=== PATIENT | male | born 1980 | race Hispanic/Latino ===

== ENCOUNTER 2025-02-18 06:17 | Day surgery (SDC) | payer OTHER ==
[2025-02-16 10:18] VITALS: BP 147/75; PULSE 76; RESP 17; TEMP 98
[2025-02-16 10:19] LABS: IMMATURE GRANULOCYTE ABSOLUTE 0.03 K/uL (0-1); NUCLEATED RED BLOOD CELLS 0.0 % (0.0-0.19); PLATELET COUNT (AUTO) 347 K/uL (130-400); RED BLOOD CELL COUNT(AUTO) 5.18 MIL/uL (4.50-6.20); RED CELL DISTRIBUTION WIDTH 13.6 % (11.0-15.5); WHITE BLOOD COUNT (AUTO) 7.8 K/uL (4.8-10.8)
[2025-02-16 10:25] LABS: CREATININE 1.0 mg/dL (0.5-1.3); GLOMERULAR FILTR. RATE CALC 95.0 mL/min (>90); GLUCOSE,RANDOM 94.0 mg/dL (70-105); SODIUM SERUM 140.0 mmol/L (136-145); UREA NITROGEN, BLOOD 8.0 mg/dL (7-18)
[~2025-02-18] VITALS: Ht 167.6 cm; Wt 152.8 kg
[2025-02-18] VITALS (13 sets, daily range): BP systolic 109–138; BP diastolic 71–85; PULSE 65–81; RESP 16–20; TEMP 97.1–97.9
[~2025-02-18 06:17] MED LIST: ALBU18HF7 IH; ATOR40TA71 PO; BUPR300T53 PO; BUSP15TA3 PO; LEVO25TA54 PO; MONT-39 PO; NAPR-1174 PO
[2025-02-18] MEDS: LACTATED RINGERS 1000ML 1,000 ML IV ONE (07:07)
[2025-02-18] MEDS ORDERED: LIDOCAINE PF 100MG/5ML (2%) SYRINGE 5ML ONE (07:35)
[2025-02-18] MEDS ORDERED: SUCCINYLCHOLINE CHLORIDE 20 MG/ML 10 ML VIAL ONE ×2 (07:36→08:27)
[2025-02-18] MEDS ORDERED: GLYCOPYRROLATE 0.2 MG/ML 5 ML VIAL ONE (07:36)
[2025-02-18] MEDS ORDERED: NEOSTIGMINE METHYLSULFATE 1MG/ML IV ONE (07:36)
[2025-02-18] MEDS ORDERED: MIDAZOLAM HCL 1 MG/ML 2ML VIAL ONE (07:37)
[2025-02-18] MEDS ORDERED: ACET-2079 PO (07:47)
--- NOTE | 2025-02-18 07:52 | OP ---
Operative Note: DATE OF PROCEDURE: 02/18/25 SURGEON: JERICHO YANCEY MD REMOTE SENSING SURVEYOR: [Josiah Sepulveda CFA] ANESTHESIA: [General anesthesia] ANESTHESIOLOGIST/WEB ANALYST: [Amrit Greer] PREOPERATIVE DIAGNOSIS: [Right knee medial meniscal tear] POSTOPERATIVE DIAGNOSIS: [Complex tear posterior horn medial meniscus, plus chondral lesion medial femoral condyle] PROCEDURE: [Right knee arthroscopy, partial medial meniscectomy, chondroplasty medial femoral condyle] ESTIMATED BLOOD LOSS: [Less than 20 mL] INDICATIONS: [44-year-old male with a history of recurrent pain to the right knee. The patient has been admitted for arthroscopic procedure after MRI revealed the presence of a tear of the medial meniscus. Procedure understood, risks, benefits and possible complications and agreed to sign the consent form.] DESCRIPTION OF PROCEDURE: [After adequate general anesthesia was achieved the patient's right lower extremity was prepped and draped in the usual manner previous placement of the tourniquet in the proximal thigh. The extremity was elevated and exsanguinated with an Esmarch band and the tourniquet was inflated to 250 mmHg the Esmarch band been then removed. The leg was brought to the side of the bed with the knee in 90 degrees of flexion and 2 small incisions were made medial and lateral to the patella tendon at the joint line level through the skin followed by blunt dissection with a trocar penetrating into the joint. Through the lateral portal the arthroscopic cannula was inserted and then after the cannula was removed the scope was inserted in the sheath bringing the knee on the table in extension placing the scope in the suprapatellar area which was noted to be normal with a normal quadriceps tendon and patellofemoral joint. The knee was then brought into flexion on the side of the bed and the scope follow into the medial compartment where after valgus stress was done we were able to visualize the medial compartment and a complex tear of the meniscus, which was very unstable. With the use of the meniscal shaver as well as an trimmers we proceeded to remove the torn tissue leaving hook stable tissue removing all the debris. We also noted the presence of a loose articular surface cartilage in the more lateral aspect of the weight-bearing surface of the medial femoral condyle, the lesion lifting from one age and we proceeded to remove all the loose tissue and noticing that the chondral lesion was partial thickness with still adequate cartilage left over behind. We then proceeded to bring the scope to the intercondylar notch noticing that the ACL and PCL were normal and then with a [id number] position of the knee we were able to visualize the lateral compartment which show normal characteristics of the meniscus and the articular surface. The arthroscope was then removed from the joint as well as the fluid and we then proceeded to close the incisions with #3- 0 nylon simple stitches. A soft dressing was applied to cover the small incisions followed by application of an Gold bandage. The drapes were then removed after the tourniquet was deflated and the patient was transferred to the stretcher and then taken to recovery room for follow-up by anesthesia. There were no complications during the procedure.] JERICHO YANCEY MD Feb 18, 2025 07:52
--- NOTE | 2025-02-18 10:07 | NUR ---
Full and complete discharge instructions given to Patient and Family both verbally and in writing. Explained Surgical procedure precautions and follow up. Right knee incision sites clean dry and intact. No evidence of bleeding, bruising or hematoma. Gold wrap secure from OR. Patient remains neurovascularly intact. Crutch training provided. All questions answered. PIV removed with catheter tip intact. Family at bedside appearing supportive. W/C to POV with Family to home
== END 2025-02-18 10:00 | disposition home or self-care (01) ==
LOC: DAH 06:17
PROVIDERS: ATTEND Orthopaedic Surgery
DX: M23.221 Derangement of posterior horn of medial meniscus due to old tear or injury, right knee (principal); E66.01 Morbid (severe) obesity due to excess calories; Z68.43 Body mass index [BMI] 50.0-59.9, adult; Z79.899 Other long term (current) drug therapy
CPT/HCPCS: 29881; 80048; 85025; 36415; A4663; J7120 ×2; A4649 ×2; J3010; J0690 ×2; J1100; J0330 ×2; J3490 ×3; J2003; J2250; J2704; J2405; J2710; A6223; A4930; A5120; A4215; A4223; A4222; A4221; A6450